=== PATIENT | male | born 1975 | race Caucasian/White ===

== ENCOUNTER 2016-12-29 18:58 | Emergency (ER) | payer MEDICAID ==
[~2016-12-29] VITALS: Ht 177.8 cm; Wt 95.4 kg
[~2016-12-29 18:58] MED LIST: LAMO100T PO; LYRI50CA PO
[2016-12-29 19:02] VITALS: BP 105/74; PULSE 86; RESP 20; TEMP 98.2; O2SAT 97
[2016-12-29] MEDS ORDERED: ESLI1TAB2 PO ×2 (19:17→19:32)
[2016-12-29] MEDS ORDERED: LAMO100T PO (19:32)
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
== END 2016-12-29 19:54 | disposition home or self-care (01) ==
LOC: PHEFT 18:58
DX: G40.909 Epilepsy, unspecified, not intractable, without status epilepticus (principal)
CPT/HCPCS: 99281

== ENCOUNTER 2017-01-16 21:21 | Emergency (ER) | payer MEDICAID ==
[~2017-01-16] VITALS: Ht 177.8 cm; Wt 94.9 kg
[~2017-01-16 21:21] MED LIST changes: +ESLI1TAB2 PO; -LYRI50CA PO
[2017-01-16 21:25] VITALS: BP 98/73; PULSE 75; RESP 20; TEMP 98.3; O2SAT 97
[2017-01-16] MEDS ORDERED: ESLI1TAB2 PO (22:37)
[2017-01-16] MEDS ORDERED: LAMO100T PO (22:37)
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
[2017-01-16 22:42] VITALS: BP 103/68
== END 2017-01-16 22:59 | disposition home or self-care (01) ==
LOC: PHED 21:21
DX: Z76.0 Encounter for issue of repeat prescription (principal); G40.909 Epilepsy, unspecified, not intractable, without status epilepticus; H91.93 Unspecified hearing loss, bilateral
CPT/HCPCS: 99281

== ENCOUNTER 2017-02-21 13:56 | Emergency (ER) | payer MEDICAID ==
[~2017-02-21] VITALS: Ht 177.8 cm; Wt 92.0 kg
[2017-02-21 14:03] VITALS: BP 112/73; PULSE 78; RESP 17; TEMP 98.4; O2SAT 97
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
[2017-02-21] MEDS ORDERED: KETOROLAC TROMETHAMINE 60 MG/2 ML (IM) VIAL IM ONE (14:30)
--- NOTE | 2017-02-21 15:09 | RADRPT ---
EXAM DATE/TIME: 02/21/2017 14:33 [facility] COMPARISON: No previous studies available for comparison. INDICATIONS : Short of breath MEDICAL HISTORY : None. SURGICAL HISTORY : None. ENCOUNTER: Initial ACUITY: 2 days PAIN SCORE: 7/10 LOCATION: Bilateral chest FINDINGS: A single view of the chest demonstrates the lungs to be symmetrically aerated without evidence of mas s, infiltrate or effusion. The cardiomediastinal contours are unremarkable. Osseous structures are intact. CONCLUSION: No acute disease. Sundeep De Jesus MD FACR on February 21, 2017 at 15:07 Board Certified Radiologist. This report was verified electronically.
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
[2017-02-21] MEDS ORDERED: NAPR500T PO (15:28)
[2017-02-21] MEDS ORDERED: LAMO100T PO (15:34)
[2017-02-21] MEDS ORDERED: ESLI1TAB2 PO (15:34)
== END 2017-02-21 15:46 | disposition home or self-care (01) ==
LOC: PHED 13:56
DX: S43.402A Unspecified sprain of left shoulder joint, initial encounter (principal); H91.93 Unspecified hearing loss, bilateral; V19.3XXA Pedal cyclist (driver) (passenger) injured in unspecified nontraffic accident, initial encounter; Y93.55 Activity, bike riding
CPT/HCPCS: 71010; 73060; 73070; 73110; 96372; 99284; J1885

== ENCOUNTER 2017-03-26 15:27 | Emergency (ER) | payer MEDICAID ==
[~2017-03-26] VITALS: Ht 177.8 cm; Wt 95.3 kg
[~2017-03-26 15:27] MED LIST changes: +NAPR500T PO
[2017-03-26 15:31] VITALS: BP 116/79; PULSE 81; RESP 16; TEMP 98.1; O2SAT 98
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
[2017-03-26] MEDS ORDERED: LAMO100T PO (16:02)
[2017-03-26] MEDS ORDERED: ESLI1TAB2 PO (16:02)
== END 2017-03-26 16:09 | disposition home or self-care (01) ==
LOC: PHEFT 15:27
DX: Z76.0 Encounter for issue of repeat prescription (principal); R56.9 Unspecified convulsions; H91.93 Unspecified hearing loss, bilateral; Z87.39 Personal history of other diseases of the musculoskeletal system and connective tissue; Z86.69 Personal history of other diseases of the nervous system and sense organs
CPT/HCPCS: 99281

== ENCOUNTER 2017-04-15 16:31 | Emergency (ER) | payer MEDICAID ==
[~2017-04-15] VITALS: Ht 177.8 cm; Wt 95.0 kg
[~2017-04-15 16:31] MED LIST changes: -NAPR500T PO
[2017-04-15 16:47] VITALS: BP 104/72; PULSE 81; RESP 16; TEMP 98.2; O2SAT 99
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
== END 2017-04-15 18:55 | disposition home or self-care (01) ==
LOC: PHEFT 16:31
DX: S39.012A Strain of muscle, fascia and tendon of lower back, initial encounter (principal); W18.2XXA Fall in (into) shower or empty bathtub, initial encounter; Y93.E1 Activity, personal bathing and showering
CPT/HCPCS: 72110; 99283

== ENCOUNTER 2017-12-13 18:02 | Emergency (ER) | payer MEDICAID ==
[~2017-12-13] VITALS: Ht 177.8 cm; Wt 98.0 kg
[2017-12-13 18:19] VITALS: BP 99/55; PULSE 81; RESP 18; TEMP 98.8; O2SAT 97
[2017-12-13] MEDS ORDERED: LYRI50CA PO (18:28)
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
--- NOTE | 2017-12-13 19:12 | RADRPT ---
EXAM DATE: 12/13/2017 7:07 PM EDT AGE/SEX: 42 years / Male INDICATIONS: Lateral side right ankle pain after rolling it. CLINICAL DATA: This is the patient's initial encounter. Patient reports that signs and symptoms have been present for 1 day and indicates a pain score of 6/10. MEDICAL/SURGICAL HISTORY: . Right foot fracture. None. COMPARISON: No prior [facility] exams available for comparison. FINDINGS: Bony structures are intact and in normal alignment. Joints are intact without dislocation or signifi cant arthropathy. Osseous density is normal. There is minimal soft tissue thickening about the later al aspect of the ankle.. No radiopaque foreign bodies seen. CONCLUSION: 1. Mild lateral soft tissue swelling. 2. No fracture seen. Electronically signed by: Eric Ley MD 12/13/2017 7:11 PM EDT
== END 2017-12-13 19:37 | disposition home or self-care (01) ==
LOC: PHEFT 18:02
DX: S93.401A Sprain of unspecified ligament of right ankle, initial encounter (principal); X50.1XXA Overexertion from prolonged static or awkward postures, initial encounter; Y93.01 Activity, walking, marching and hiking; F79 Unspecified intellectual disabilities
CPT/HCPCS: 73610; 99283; L1906

== ENCOUNTER 2018-01-07 16:40 | Emergency (ER) | payer MEDICAID ==
[~2018-01-07] VITALS: Ht 177.8 cm; Wt 96.3 kg
[~2018-01-07 16:40] MED LIST changes: +LYRI50CA PO
[2018-01-07 16:58] VITALS: BP 93/50; PULSE 88; RESP 16; TEMP 98.4; O2SAT 98
[2018-01-07] MEDS ORDERED: ESLI1TAB3 PO (17:19)
[2018-01-07 17:22] VITALS: BP 96/71
--- NOTE | 2018-01-07 18:18 | RADRPT ---
EXAM DATE: 01/07/2018 6:08 PM EDT AGE/SEX: 42 years / Male INDICATIONS: Cough and congestion CLINICAL DATA: This is the patient's initial encounter. Patient reports that signs and symptoms have been present for 3 days and indicates a pain score of 0/10. MEDICAL/SURGICAL HISTORY: . No pertinent history. . No pertinent history. COMPARISON: [facility], CHEST PA & LAT, 11/27/2015. . FINDINGS: The heart size is normal. There is increased density at the right base. The left lung is grossly roberta r. CONCLUSION: Right base consolidation or atelectasis. Electronically signed by: Lefty Fitzpatrick MD 01/07/2018 6:17 PM EDT
[2018-01-07] MEDS ORDERED: AZIT250T3 PO (18:32)
[2018-01-07] MEDS ORDERED: BENZ100 PO (18:32)
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
== END 2018-01-07 18:48 | disposition home or self-care (01) ==
LOC: PHEFT 16:40
DX: J18.1 Lobar pneumonia, unspecified organism (principal); G40.909 Epilepsy, unspecified, not intractable, without status epilepticus; H91.90 Unspecified hearing loss, unspecified ear
CPT/HCPCS: 71046; 99283